=== PATIENT | female | born 1945 | race Caucasian/White ===

== ENCOUNTER 2019-06-27 22:43 | Inpatient (IN) | payer OTHER ==
--- OUTSIDE RECORDS SUMMARY | 2019-06-27 22:45 | XMS REPORT ---
:1945 Author Organization eClinicalWorks Care Team Providers Name Role Phone Rj Alfred Provider Role Unavailable Allergies No Known Allergies Problems Problem Type Condition Code Onset Dates Condition Status Problem Alzheimer disease G30.9 Active Problem Neck pain M54.2 Active Assessment Hyperlipidemia, mixed E78.2 Active Assessment Diabetes type 2, uncontrolled E11.65 Active Assessment Benign essential HTN I10 Active Problem Gingivitis K05.10 Active Problem Hyperlipidemia, mixed E78.2 Active Problem Stage 3 chronic kidney disease N18.3 Active Problem Diabetes type 2, uncontrolled E11.65 Active Problem Osteopenia M85.80 Active Problem Carotid artery occlusion I65.29 Active Problem Benign essential HTN I10 Active Medications No Known Medications Results No Known Results Summary Purpose eClinicalWorks Submission
--- OUTSIDE RECORDS SUMMARY | 2019-06-27 22:45 | XMS REPORT ---
:1945 Author Organization eClinicalWorks Care Team Providers Name Role Phone Alfred De La Rosa Provider Role Unavailable Allergies, Adverse Reactions, Alerts Substance Reaction Event Type penicillin Info Not Available Drug Allergy Problems Problem Type Condition Code Onset Dates Condition Status Problem Osteopenia M85.80 Active Problem Benign essential HTN I10 Active Problem Diabetes type 2, uncontrolled E11.65 Active Problem Proteinuria, unspecified R80.9 Active Assessment Alzheimer disease G30.9 Active Problem Decreased appetite R63.0 Active Assessment Osteopenia M85.80 Active Assessment Hypokalemia E87.6 Active Problem Type 2 diabetes mellitus with other E11.29 Active diabetic kidney complication Problem Hyperlipidemia, mixed E78.2 Active Problem Carotid artery occlusion I65.29 Active Problem Stage 3 chronic kidney disease N18.3 Active Problem Gingivitis K05.10 Active Assessment Benign essential HTN I10 Active Assessment Hyperlipidemia, mixed E78.2 Active Assessment Carotid artery occlusion I65.29 Active Assessment Stage 3 chronic kidney disease N18.3 Active Assessment Diabetes type 2, uncontrolled E11.65 Active Assessment Decreased appetite R63.0 Active Assessment Proteinuria, unspecified R80.9 Active Problem Neck pain M54.2 Active Assessment Type 2 diabetes mellitus with other E11.29 Active diabetic kidney complication Assessment Medicare annual wellness visit, Z00.00 Active subsequent Problem Alzheimer disease G30.9 Active Medications Medication Code Code Instructions Start End Status Dosage System Date Date Metoprolol Tartrate ND 80371061476 50 MG Orally Active 1 tablet Twice a day with food Lisinopril ND 10145920443 2.5 MG Orally Active 1 tablet Once a day Namzaric ND 51551693239 7-10 MG Orally Inactive 1 capsule Once a day in the evening Ziprasidone HCl ND 81398983464 20 MG Oral Active TAKE ONE (1) CAPSULE(S) BY MOUTH ONCE A DAY NEEDED. Glimepiride ND 60873299194 2 MG Orally Inactive 1 tablet Once a day with breakfast or the first main meal of the day Alendronate Sodium ND 65957994895 35 MG Orally Active 1 tablet once per week Lisinopril [facility] 12984249181 2.5 MG Active TAKE ONE (1) TABLET(S) BY MOUTH ONCE A DAY. Donepezil HCl [facility] 32106700738 10 MG Oral Active TAKE ONE (1) TABLET(S) BY MOUTH ONCE A DAY. Memantine HCl [facility] 26874014570 10 MG Oral Active TAKE ONE (1) TABLET(S) BY MOUTH TWICE A DAY. Glimepiride [facility] 77367989156 2 MG Active TAKE ONE (1) TABLET(S) BY MOUTH ONCE A DAY WITH BREAKFAST OR THE FIRST MAIN MEAL OF THE DAY. Hydrochlorothiazide [facility] 29771096312 12.5 MG Orally Active 1 tablet Once a day in the morning Crestor [facility] 37301486455 20 MG Orally Active 1 tablet Once a day Alendronate Sodium [facility] 65225953734 35 MG Orally Active 1 tablet once per week Results No Known Results Summary Purpose eClinicalWorks Submission
--- OUTSIDE RECORDS SUMMARY | 2019-06-27 22:45 | XMS REPORT ---
:1945 [facility] Address [address] [place] [address] Dr. Guallpa [address] [place] [id number] Care Team Providers Name Role Phone SYSTEM, PROVIDER NOT IN Unavailable Unavailable HAILEY SIMON Unavailable Unavailable Problems This patient has no known problems. Allergies, Adverse Reactions, Alerts This patient has no known allergies or adverse reactions. Medications This patient has no known medications. Results Test Description Test Time Test Comments Text Results Atomic Results Result Comments MM, STEREOTACTIC 2018-05-13 Reason for Addendum BeginsMRN#: BIOPSY, BREAST, 13:36:00 Exam:->microcalcifications [id number]: RIGHT 05/13/2018 Francis Rebollar M.D. Pathology results are now available and demonstrate hyalinized fibroadenoma.This is concordant with the imaging findings. Addendum EndsMRN#: [id number] - MM, STEREOTACTIC BIOPSY, BREAST, RIGHTSTEREOTACTIC GUIDED BIOPSY RIGHT BREAST WITH MARKING DEVICE INSERTED AND POST DIGITAL MAMMOGRAPHIC IMAGIN05/09/2018PATIENT CONSENT: The procedure, risks, benefits and alternatives were discussed with the patient. Informed consent was obtained. A stereotactic guided biopsy was performed for the area of grouped calcifications located in the right breast central, lateral to the nipple middle depth. The skin was prepped in the usual manner. Local anesthetic was administered to the access site. A skin stefan was made in the breast. The abnormality was approached from the lateral aspect using a prone table. A 9 gauge biopsy needle was placed adjacent to the abnormality under computer guidance and confirmatory stereotactic mammography images were obtained to document needle placement. Once the needle was documented to be in the correct location, multiple specimens were obtained using Voxound device. A clip was inserted into the biopsy cavity. A pressure dressing was applied to the access site. Post procedure digital mammographic imaging demonstrates the clip at the targeted area. The specimens were sent to the laboratory for pathological analysis. IMPRESSION: STEREOTACTIC GUIDED BIOPSYStereotactic guided biopsy of the area of grouped calcifications in the right breast central, lateral to the nipple middle depth was successful with no apparent post procedure complications. Francis Rebollar M.D. pth/:05/09/2018 14:05:00 Speedboat Operator: Teena Page RT(R)(M), [facility] [id number] UE EXAM 2018-05-10 Surgical Pathology 11:48:00 Report Case: [id number] Authorizing Provider: Francis Rebollar MD Collected: 05/09/2018 1533 Ordering Location: [facility] Received: 05/09/2018 8758 Pathologist: Rock Guerrero MD Specimen: Breast, Right, RIGHT CENTER LATERAL BREAST BREAST, RIGHT, CENTER LATERAL, STEREOTACTIC NEEDLE CORE BIOPSY: - HYALINIZED FIBROADENOMA ASSOCIATED WITH CALCIFICATIONS - COLUMNAR CELL CHANGES - BENIGN BREAST TISSUE ASSOCIATED WITH CALCIFICATION Signing Pathologist Direct Phone Line: [phone] ally signed by Rock Guerrero MD on 05/10/2018 at 11:48 [id number] X 1Questionable sclerosing lesion Right central lateral breast calcifications The specimen is received in a formalin-filled container labeled with the patient's information and labeled "right central lateral breast calcifications" and consists of multiple yellow-white breast cores ranging in length from 0.5 to 5 cm.Ink code: Black.The specimen is entirely submitted in A1 through A3. CG/ew Performed. [facility], Department of Pathology, [address] [place] [address], [place] [address], MM, MAMMO, 2018-05-09 Reason for exam:->Right breast MRN#: SPECIMEN, 14:05:00 calcifications [id number] - RADIOGRAPH, RIGHT MM, MAMMO, SPECIMEN, RADIOGRAPH, RIGHTSPECIMEN RIGHT BREAST: 05/09/2018Multiple stereotactic guided biopsy specimens were imaged for the area of calcifications located in the right breast central, lateral to the nipple middle depth. IMPRESSION: SPECIMENThe imaged specimens includes the calcifications. Francis Rebollar M.D. pth/:05/09/2018 14:05:51 Speedboat Operator: Teena VALDEZ (R)(Nany), [facility] [id number] , DIGITAL, 2018-05-09 Right breast Calcifications MRN#: UNILATERAL, 14:03:00 [id number] - CONFER JAYME, MM, DIGITAL, MAMMO, RIGHT UNILATERAL, CONFER INCLUDING CAD JAYME, MAMMO, RIGHT INCLUDING CADUNILATERAL RIGHT DIGITAL PROBLEM SOLVING MAMMOGRAM POST-PROCEDURE IMAGING FOR MARKER PLACEMENT: 05/09/2018 There are scattered fibroglandular elements in the right breast that could obscure a lesion on mammography. The post procedure mammogram was performed on a separate mammography unit.A clip is placed at the biopsy site. IMPRESSION: POST PROCEDURE MAMMOGRAM FOR MARKER PLACEMENTAwait pathology results. Francis Rebollar M.D. pth/:05/09/2018 14:03:34 Speedboat Operator: Teena FUNEZ)(M), [facility] Mammogram BI-RADS: Post-procedure mammogram for marker placement [id number] UE EXAM 2017-03-05 Surgical Pathology 10:40:00 Report Case: [id number] Authorizing Provider: Hailey Simon MD Collected: 02/24/2017 0832 Ordering Location: [facility] Received: 02/24/2017 0928 PERIOPERATIVE SERVICES Pathologist: Humberto Simons MD Specimen: Plaque, LEFT CAROTID ARTERY PLAQUE ARTERY, LEFT CAROTID, ATHERECTOMY:CALCIFIC ATHEROSCLEROTIC PLAQUE Signing Pathologist Direct Phone Line: [phone] ally signed by Humberto Simons MD on 03/05/2017 at 10:40 [id number]; [id number] stenosisLeft carotid artery plaque Specimen is received in a formalin-filled container labeled with the patient's information and labeled "left carotid plaque" and consists of a tubular shaped calcified segment of tissue measuring 2 cm in length and 0.5 cm in diameter. Cement Sprayer Helper sections are submitted in A1 for decalcification. CG/ewPerformed POCT-GLUCOSE METER 2017-02-25 11:16:00 Test Item Value Reference Range Comments POC-GLUCOSE METER (BEAKER) (test 114 mg/dL 70-110 TESTED AT [address] byre=6751) [place] [id number] POCT-GLUCOSE [id number] 06:48:00 Test Item Value Reference Range Comments POC-GLUCOSE METER (BEAKER) 154 mg/dL 70-110 TESTED AT [address] (test avcb=8113) [place] [address] POCT-GLUCOSE [id number] 23:34:00 Test Item Value Reference Range Comments POC-GLUCOSE METER (BEAKER) 166 mg/dL 70-110 TESTED AT [address] (test tpij=7673) [place] [address] POCT-GLUCOSE [id number] 23:32:00 Test Item Value Reference Range Comments POC-GLUCOSE METER (BEAKER) 251 mg/dL 70-110 TESTED AT [address] (test uoft=6258) [place] [address] POCT-GLUCOSE [id number] 20:27:00 Test Item Value Reference Range Comments POC-GLUCOSE METER (BEAKER) 260 mg/dL 70-110 TESTED AT [address] (test kitx=0853) [place] [address] POCT-GLUCOSE [id number] 06:16:00 Test Item Value Reference Range Comments POC-GLUCOSE METER (BEAKER) 162 mg/dL 70-110 TESTED AT [address] (test upey=4871) [place] [address] HEMOGLOBIN [id number] 12:09:00 Test Item Value Reference Range Comments HEMOGLOBIN A1C (BEAKER) (test irwc=506) 7.8 % 4.3-6.1 BASIC METABOLIC [id number] 10:38:00 Test Item Value Reference Range Comments SODIUM (BEAKER) (test 140 meq/L 136-145 ilpj=685) POTASSIUM (BEAKER) (test 4.0 meq/L 3.5-5.1 kyxg=037) CHLORIDE (BEAKER) (test 102 meq/L 98-107 vfwx=255) CO2 (BEAKER) (test 27 meq/L 22-29 tnby=462) BLOOD UREA NITROGEN 15 mg/dL 7-21 (BEAKER) (test qpzn=874) CREATININE (BEAKER) (test 1.01 mg/dL 0.57-1.25 xtli=207) GLUCOSE RANDOM (BEAKER) 287 mg/dL 70-105 (test gnxf=325) CALCIUM (BEAKER) (test 9.4 mg/dL 8.4-10.2 yzkl=993) EGFR (BEAKER) (test 54 mL/min/1.73 sq m ESTIMATED GFR IS NOT lxrh=1294) ACCURATE CREATININE CLEARANCE IN PREDICTING GLOMERULAR FILTRATION RATE. ESTIMATED GFR IS NOT APPLICABLE FOR DIALYSIS PATIENTS. PROTHROMBIN TIME/[id number] 10:25:00 Test Item Value Reference Range Comments PROTIME (BEAKER) (test ixwo=972) 12.9 seconds 11.7-14.7 INR (BEAKER) (test rbqc=302) 1.0 <=5.9 RECOMMENDED COUMADIN/WARFARIN INR THERAPY RANGESSTANDARD DOSE: 2.0 - 3.0 Includes: PROPHYLAXIS forvenous thrombosis, systemic embolization; TREATMENT for venous thrombosis and/or pulmonary embolus.HIGH RISK: Target INR is 2.5-3.5 for patients with mechanical heart valves.CBC W/PLT COUNT & AUTO [id number] 10:09:00 Test Item Value Reference Range Comments WHITE BLOOD CELL COUNT (BEAKER) (test upbg=203) 5.3 K/ L 3.5-10.5 RED BLOOD CELL COUNT (BEAKER) (test rrci=211) 4.48 M/ L 3.93-5.22 HEMOGLOBIN (BEAKER) (test wzac=434) 13.1 GM/DL 11.2-15.7 HEMATOCRIT (BEAKER) (test botb=596) 40.1 % 34.1-44.9 MEAN CORPUSCULAR VOLUME (BEAKER) (test cvfx=466) 89.5 fL 79.4-94.8 MEAN CORPUSCULAR HEMOGLOBIN (BEAKER) (test 29.2 pg 25.6-32.2 gwcf=236) MEAN CORPUSCULAR HEMOGLOBIN CONC (BEAKER) (test 32.7 GM/DL 32.2-35.5 iawp=322) RED CELL DISTRIBUTION WIDTH (BEAKER) (test 13.7 % 11.7-14.4 qvxn=773) PLATELET COUNT (BEAKER) (test qfat=504) 267 K/CU MM 150-450 MEAN PLATELET VOLUME (BEAKER) (test obth=440) 10.7 fL 9.4-12.3 NUCLEATED RED BLOOD CELLS (BEAKER) (test 0 /100 WBC 0-0 ogci=928) NEUTROPHILS RELATIVE PERCENT (BEAKER) (test 58 % okbw=815) LYMPHOCYTES RELATIVE PERCENT (BEAKER) (test 30 % vwgc=035) MONOCYTES RELATIVE PERCENT (BEAKER) (test 7 % ohrs=100) EOSINOPHILS RELATIVE PERCENT (BEAKER) (test 5 % qyqw=053) BASOPHILS RELATIVE PERCENT (BEAKER) (test 1 % vfyy=146) NEUTROPHILS ABSOLUTE COUNT (BEAKER) (test 3.05 K/ L 1.56-6.13 ilvz=469) LYMPHOCYTES ABSOLUTE COUNT (BEAKER) (test 1.58 K/ L 1.18-3.74 uhkt=968) MONOCYTES ABSOLUTE COUNT (BEAKER) (test 0.35 K/ L 0.24-0.36 lrrw=399) EOSINOPHILS ABSOLUTE COUNT (BEAKER) (test 0.26 K/ L 0.04-0.36 zecl=865) BASOPHILS ABSOLUTE COUNT (BEAKER) (test 0.03 K/ L 0.01-0.08 jfpm=667) IMMATURE GRANULOCYTES-RELATIVE PERCENT (BEAKER) 0 % 0-1 (test eewz=5154)
--- OUTSIDE RECORDS SUMMARY | 2019-06-27 22:45 | XMS REPORT ---
:1945 Author Organization eClinicalWorks Care Team Providers Name Role Phone Hong De La Rosah Provider Role Unavailable Allergies, Adverse Reactions, Alerts Substance Reaction Event Type penicillin Info Not Available Drug Allergy Problems Problem Type Condition Code Onset Dates Condition Status Problem Alzheimer disease G30.9 Active Problem Neck pain M54.2 Active Problem Gingivitis K05.10 Active Problem Hyperlipidemia, mixed E78.2 Active Problem Stage 3 chronic kidney disease N18.3 Active Problem Diabetes type 2, uncontrolled E11.65 Active Problem Osteopenia M85.80 Active Problem Carotid artery occlusion I65.29 Active Problem Benign essential HTN I10 Active Assessment Stage 3 chronic kidney disease N18.3 Active Assessment Hypokalemia E87.6 Active Assessment Carotid artery occlusion I65.29 Active Assessment Benign essential HTN I10 Active Assessment Osteopenia M85.80 Active Assessment Hyperlipidemia, mixed E78.2 Active Assessment Alzheimer disease G30.9 Active Assessment Diabetes type 2, uncontrolled E11.65 Active Medications Medication Code Code Instructions Start End Status Dosage System Date Crestor [facility] 62832332658 20 MG Orally Active 1 tablet Once a day Donepezil HCl [facility] 35778053559 10 MG Oral Active TAKE ONE (1) TABLET(S) BY MOUTH ONCE A DAY. Lisinopril [facility] 08680495680 2.5 MG Orally Active 1 tablet Once a day Alendronate Sodium [facility] 57622989583 35 MG Orally Active 1 tablet once per week Namzaric [facility] 80008980328 7-10 MG Orally Inactive 1 capsule Once a day in the evening Memantine HCl ND 32327440485 10 MG Oral Active TAKE ONE (1) TABLET(S) BY MOUTH TWICE A DAY. Metoprolol Tartrate [facility] 19068033186 50 MG Orally Active 1 tablet Twice a day with food Lisinopril [facility] 16979304908 2.5 MG Active TAKE ONE (1) TABLET(S) BY MOUTH ONCE A DAY. Hydrochlorothiazide [facility] 92047982999 25 MG Orally Active 1 tablet Once a day in the morning Glimepiride [facility] 34710967027 2 MG Orally Active 1 tablet Once a day with breakfast or the first main meal of the day Glimepiride [facility] 18240985893 2 MG Orally Inactive 1 tablet Once a day with breakfast or the first main meal of the day Ziprasidone HCl [facility] 02397417281 20 MG Oral Active TAKE ONE (1) CAPSULE(S) BY MOUTH ONCE A DAY NEEDED. Hydrochlorothiazide [facility] 17843123498 12.5 MG Orally Active 1 tablet Once a day in the morning Results No Known Results Summary Purpose eClinicalWorks Submission
[2019-06-27] MEDS ORDERED: NA CHLORIDE 0.9% 1,000 ML ONE (23:24)
[2019-06-27 23:32] LABS: Absolute Lymphocytes (CBC) 2.1 K/uL (0.7-4.9); Basophils % 0.9 % (0-1.3); Hematocrit 40.8 % (36.0-45.0); Lymphocytes % 18.6 % (15.3-44.8); MPV 9.4 fL (7.6-11.3); Protime INR 0.97; RBC Red Blood Cell Count 4.86 M/uL (3.86-4.86)
--- NOTE | 2019-06-27 23:54 | RAD REPORT ---
EXAM DESCRIPTION: RAD - Chest Single View - 06/27/2019 11:42 pm CLINICAL HISTORY: hypotension Chest pain. COMPARISON: Chest Single View dated 01/29/2017; Chest Single View dated 01/27/2017; Chest Single View dated 01/26/2017 FINDINGS: Portable technique limits examination quality. The lungs are mildly emphysematous but clear. The heart is normal in size. No displaced fractures. IMPRESSION: COPD.
[2019-06-28 00:10] LABS: Urine Appearance TURBID; Urine Blood NEGATIVE (NEG); Urine Color DK YELLOW; Urine Glucose NEGATIVE (NEG); Urine Protein 2+ (NEG)
[2019-06-28 00:11] LABS: Urine Microscopic Reflex ORDER UMIC
[2019-06-28 00:33] LABS: Urine Blood 3+ (NEG); Urine Glucose NEGATIVE (NEG); Urine Protein 3+ (NEG); Urine Specific Gravity >1.030 (1.005-1.030)
[2019-06-28 00:34] LABS: Urine Bilirubin NEGATIVE (NEG)
[2019-06-28 00:38] LABS: Urine Amorphous Sediment 4+ /HPF (NONE SEEN); Urine Bacteria 20-50 /HPF (<20); Urine Culture Reflex Order REFLEXED; Urine RBC <5 /HPF (NONE SEEN); Urine Urothelial Cells <5 /HPF (NONE SEEN)
[2019-06-28 00:39] LABS: ALT/SGPT 12 U/L (12-78); AST/SGOT 18 U/L (15-37); Albumin 3.6 g/dL (3.4-5.0); Alkaline Phosphatase 63 U/L (45-117); BUN Blood Urea Nitrogen 49 mg/dL (7-18); Bicarbonate 27 mmol/L (21-32); Bilirubin Direct 0.2 mg/dL (0-0.2); Bilirubin Total 0.6 mg/dL (0.2-1.0); Glucose Level 108 mg/dL (74-106); Magnesium 2.6 mg/dL (1.8-2.4); NT PRO-BNP 538 pg/mL (<450); Potassium 3.9 mmol/L (3.5-5.1); Sodium Level 134 mmol/L (136-145); Troponin (Emerg Dept Use Only) < 0.02 ng/mL (0.0-0.045)
[2019-06-28] MEDS ORDERED: ACETAMINOPHEN 500 MG TAB PO PRN (01:18)
[2019-06-28] MEDS ORDERED: ONDANSETRON 4 MG/2 ML VIAL IV PRN (01:18)
--- NOTE | 2019-06-28 01:33 | EDPHYS ---
Physician Documentation [facility] Name: Nichole Brown Age: 73 yrs Sex: Female : 1945 Arrival Date: 06/27/2019 Time: 22:[address] Private MD: ED Physician Ascencion Allison HPI: 06/27 23:38 This 73 yrs old Female presents to ER via Wheelchair with complaints of Low pkl Blood Pressure. 23:38 Patient weak and not eating for 2 to 3 days. Daughter said she has recurrent falls past pkl few days. Historical: - Allergies: 23:09 PENICILLINS; rv - Home Meds: 23:09 aspirin 81 mg Oral TbEC 1 tab once daily [Active]; Boniva Oral [Active]; cranberry rv 4200mg Oral [Active]; donepezil 10 mg Oral tab 1 tab once daily [Active]; glimepiride 2 mg Oral tab 1 tab once daily [Active]; hydrochlorothiazide 25 mg Oral tab 1 tab once daily [Active]; loratadine 10 mg Oral tab 1 tab once daily [Active]; Namzaric 10mg Oral CSpX 1 cap once daily [Active]; rosuvastatin 20 mg Oral tab 1 tab once daily [Active]; - PMHx: 23:09 Alzheimers; Diabetes - NIDDM; Hypertension; left mastectomy; skin cancer; rv - PSHx: 23:09 left mastectomy; left carotid; angiogram; rv - Immunization history:: Adult Immunizations up to date. - Social history:: Smoking status: Patient/guardian denies using tobacco, the patient reports quitting approximately 15 years ago. - Ebola Screening: : No symptoms or risks identified at this time. ROS: 23:38 Eyes: Negative for injury, pain, redness, and discharge, ENT: Negative for injury, pkl pain, and discharge, Neck: Negative for injury, pain, and swelling, Cardiovascular: Negative for chest pain, palpitations, and edema, Respiratory: Negative for shortness of breath, cough, wheezing, and pleuritic chest pain, Abdomen/GI: Negative for abdominal pain, nausea, vomiting, diarrhea, and constipation, Back: Negative for injury and pain, : Negative for injury, bleeding, discharge, and swelling, MS/Extremity: Negative for injury and deformity, Skin: Negative for injury, rash, and discoloration. 23:38 Neuro: Positive for weakness. Exam: 23:38 Head/Face: Normocephalic, atraumatic. Eyes: Pupils equal round and reactive to light, pkl extra-ocular motions intact. Lids and lashes normal. Conjunctiva and sclera are non-icteric and not injected. Cornea within normal limits. Periorbital areas with no swelling, redness, or edema. ENT: Nares patent. No nasal discharge, no septal abnormalities noted. Tympanic membranes are normal and external auditory canals are clear. Oropharynx with no redness, swelling, or masses, exudates, or evidence of obstruction, uvula midline. Mucous membranes moist. Neck: Trachea midline, no thyromegaly or masses palpated, and no cervical lymphadenopathy. Supple, full range of motion without nuchal rigidity, or vertebral point tenderness. No Meningismus. Chest/axilla: Normal chest wall appearance and motion. Nontender with no deformity. No lesions are appreciated. Cardiovascular: Regular rate and rhythm with a normal S1 and S2. No gallops, murmurs, or rubs. Normal PMI, no JVD. No pulse deficits. Respiratory: Lungs have equal breath sounds bilaterally, clear to auscultation and percussion. No rales, rhonchi or wheezes noted. No increased work of breathing, no retractions or nasal flaring. 23:38 Abdomen/GI: Bowel sounds: normal, Palpation: abdomen is soft and non-tender, in all quadrants, Rectal exam: Stool: guaiac negative, the exam is chaperoned by a family member. 23:38 Back: Exam negative for acute changes. 23:38 : Exam negative for acute changes. 23:38 Musculoskeletal/extremity: Exam is negative for acute changes. 23:38 Skin: Exam negative for rash. 23:38 Neuro: Orientation: is normal, Mentation: is normal, Cranial nerves: grossly normal, Motor: is normal. Vital Signs: 23:03 BP 72 / 42; Pulse 73; Resp 19; Temp 97.3(TE); Pulse Ox 98% ; Weight 40.82 kg; rv 23:15 BP 94 / 45; Pulse 67; Resp 18; Pulse Ox 98% on R/A; lp1 06/28 00:00 BP 94 / 81; Pulse 70; Resp 15; Pulse Ox 98% on R/A; lp1 00:45 BP 97 / 55; Pulse 77; Resp 17; Pulse Ox 97% on R/A; lp1 01:44 BP 107 / 50; Pulse 61; Resp 14; Pulse Ox 100% on R/A; lp1 02:30 BP 94 / 49; Pulse 63; Resp 13; Pulse Ox 100% on R/A; Pain 0/10; lp1 03:00 BP 98 / 50; Pulse 65; Resp 17; Pulse Ox 99% on R/A; lp1 MDM: 06/27 23:06 Patient medically screened. pkl 06/28 01:05 Data reviewed: vital signs, nurses notes, lab test result(s), EKG, radiologic studies, pkl CT scan, plain films. ED course: Discussed patient with Dr. Connolly. Will see patient in ER. 06/27 23:23 Order name: Basic Metabolic Panel; Complete Time: 00:43 pkl 06/27 23:23 Order name: CBC with Diff; Complete Time: 23:36 pkl 06/27 23:23 Order name: LFT's; Complete Time: 00:43 pkl 06/27 23:23 Order name: Magnesium; Complete Time: 00:43 pkl 06/27 23:23 Order name: PT-INR; Complete Time: 23:36 pkl 06/27 23:23 Order name: Troponin (emerg Dept Use Only); Complete Time: 00:43 pkl 06/27 23:23 Order name: Blood Culture Adult (2) pkl 06/27 23:23 Order name: UA; Complete Time: 00:43 pkl 06/27 23:37 Order name: Lactate; Complete Time: 00:33 pkl 06/27 23:53 Order name: Urine Dipstick--Ancillary (enter results); Complete Time: 00:36 jd2 06/28 00:33 Order name: Urine Microscopic Only EDMS 06/28 00:33 Order name: NT PRO-BNP EDMS 06/28 00:51 Order name: Urine Culture EDMS 06/27 23:23 Order name: XRAY Chest (1 view); Complete Time: 00:00 pkl 06/27 23:23 Order name: EKG; Complete Time: 23:24 pkl 06/27 23:23 Order name: Cardiac monitoring; Complete Time: 23:46 pkl 06/27 23:23 Order name: EKG - Nurse/Tech; Complete Time: 23:46 pkl 06/27 23:23 Order name: IV Saline Lock; Complete Time: 23:48 pkl 06/27 23:23 Order name: Labs collected and sent; Complete Time: 23:48 pkl 06/27 23:37 Order name: CT Head Brain wo Cont pkl 06/28 01:22 Order name: Heart Healthy EDME 06/28 01:22 Order name: CBC with Automated Diff EDMS 06/28 01:22 Order name: CBC with Automated Diff MS 06/28 01:22 Order name: Comprehensive Metabolic Panel [facility] 06/28 01:22 Order name: Comprehensive Metabolic Panel [facility] 06/28 01:22 Order name: Magnesium EDME 06/28 01:22 Order name: Magnesium [facility] 06/28 01:22 Order name: Phosphorus [facility] 06/28 01:23 Order name: Phosphorus MS 06/27 23:23 Order name: O2 Per Protocol; Complete Time: 23:46 pkl 06/27 23:23 Order name: O2 Sat Monitoring; Complete Time: 23:46 pkl Administered Medications: No medications were administered Point of Care Testing: Guaiac: 06/27 23:15 Stool Guaiac: Negative; Stool Hemoccult Control: Pass; lp1 Disposition: 06/28/19 01:31 Hospitalization ordered by Lawrence Connolly for Inpatient Admission. Preliminary diagnosis is Dehydration. Generalized weakness. Recurrent falls. Urinary tract infection. Hypotension. - Bed requested for Telemetry/MedSurg (Inpatient). - Status is Inpatient Admission. lp1 - Condition is Stable. - Problem is new. - Symptoms are unchanged. UTI on Admission? Yes Signatures: Dispatcher [employer] [facility] Nancy Camilo RN RN mw Lam, Pin, MD MD pkElizabeth Medina RN RN lp1 Donis Haddad RN RN rv Corrections: (The following items were deleted from the chart) 06/28 00:27 06/27 23:24 PROBNP+C.LAB.BRZ ordered. [facility] 06/28 01:44 01:31 Hospitalization Ordered by Lawrence Connolly MD for Inpatient Admission. Preliminary diagnosis is Dehydration. Generalized weakness. Recurrent falls. Urinary tract infection. Bed requested for Telemetry/MedSurg (Inpatient). Status is Inpatient Admission. Condition is Stable. Problem is new. Symptoms are unchanged. UTI on Admission? Yes. pkl 01:52 01:44 06/28/2019 01:31 Hospitalization Ordered by Lawrence Connolly MD for Inpatient pkl Admission. Preliminary diagnosis is Dehydration. Generalized weakness. Recurrent falls. Urinary tract infection. Bed requested for Telemetry/MedSurg (Inpatient). Status is Inpatient Admission. Condition is Stable. Problem is new. Symptoms are unchanged. UTI on Admission? Yes. mw 03:24 01:52 06/28/2019 01:31 Hospitalization Ordered by Lawrence Connolly MD for Inpatient lp1 Admission. Preliminary diagnosis is Dehydration. Generalized weakness. Recurrent falls. Urinary tract infection. Hypotension. Bed requested for Telemetry/MedSurg (Inpatient). Status is Inpatient Admission. Condition is Stable. Problem is new. Symptoms are unchanged. UTI on Admission? Yes. pkl
--- NOTE | 2019-06-28 01:33 | ER ---
Nurse's Notes [facility] Name: Nichole Brown Age: 73 yrs Sex: Female : 1945 Arrival Date: 06/27/2019 Time: 22:[address] Private MD: Diagnosis: Dehydration. Generalized weakness. Recurrent falls. Urinary tract infection. Hypotension Presentation: 06/27 22:56 Presenting complaint: Child states: she has alzheimer's, she has not been eating well. rv she fells a lot of time. legs are very unsteady. blood pressure is at 90s/40s. seen blood in the diaper while changing. Transition of care: patient was not received from another setting of care. Onset of symptoms was June 27, 2019 at 22:30. Risk Assessment:. Care prior to arrival: None. 22:56 Method Of Arrival: Wheelchair rv 22:56 Acuity: GENESIS 2 rv 06/28 00:46 Risk Assessment: Do you want to hurt yourself or someone else? Patient reports no lp1 desire to harm self or others. Initial Sepsis Screen: Does the patient meet any 2 criteria? No. Patient's initial sepsis screen is negative. Does the patient have a suspected source of infection? No. Patient's initial sepsis screen is negative. Triage Assessment: 06/27 23:10 General: Appears in no apparent distress. Behavior is calm, cooperative. Pain: Denies rv pain. Neuro: Level of Consciousness is awake, alert, Oriented to person, place. Cardiovascular: Patient's skin is warm and dry. Respiratory: Airway is patent. Derm: Skin is intact. Historical: - Allergies: 23:09 PENICILLINS; rv - Home Meds: 23:09 aspirin 81 mg Oral TbEC 1 tab once daily [Active]; Boniva Oral [Active]; cranberry rv 4200mg Oral [Active]; donepezil 10 mg Oral tab 1 tab once daily [Active]; glimepiride 2 mg Oral tab 1 tab once daily [Active]; hydrochlorothiazide 25 mg Oral tab 1 tab once daily [Active]; loratadine 10 mg Oral tab 1 tab once daily [Active]; Namzaric 10mg Oral CSpX 1 cap once daily [Active]; rosuvastatin 20 mg Oral tab 1 tab once daily [Active]; - PMHx: 23:09 Alzheimers; Diabetes - NIDDM; Hypertension; left mastectomy; skin cancer; rv - PSHx: 23:09 left mastectomy; left carotid; angiogram; rv - Immunization history:: Adult Immunizations up to date. - Social history:: Smoking status: Patient/guardian denies using tobacco, the patient reports quitting approximately 15 years ago. - Ebola Screening: : No symptoms or risks identified at this time. Screenin/25 00:45 Abuse screen: Denies threats or abuse. Denies injuries from another. Nutritional lp1 screening: No deficits noted. Tuberculosis screening: No symptoms or risk factors identified. Fall Risk Total Ray Fall Scale indicates High Risk Score (45 or more points). Fall prevention measures have been instituted. Side Rails Up X 2 As available patient and family educated on Fall Prevention Program and Strategies. Assessment: 06/27 23:15 General: Appears in no apparent distress. comfortable, Behavior is calm, cooperative, lp1 appropriate for age. Pain: Denies pain. Neuro: Level of Consciousness is awake, alert, obeys commands, Oriented to person, place, Patient's daughter reports patient off balance, "Her legs are like spaghetti" . Cardiovascular: Patient's skin is warm and dry. Respiratory: Respiratory effort is even, unlabored, Breath sounds are clear bilaterally. GI: Abdomen is non-distended. : No signs and/or symptoms were reported regarding the genitourinary system. EENT: No signs and/or symptoms were reported regarding the EENT system. Derm: Skin is fragile, is thin, Skin is dry, Skin is normal. Musculoskeletal: No deficits noted. 23:20 Derm: redness noted to perineum area, between buttocks; Daughter at bedside notified. lp1 23:40 Reassessment: Assisted patient to bsc. lp1 06/28 00:00 Reassessment: Assisted patient to bsc at this time, states feeling like she has to lp1 void, no urine noted in bsc. 00:35 Reassessment: Assisted patient to bsc. lp1 01:44 Reassessment: Patient returned from CT. Reassessment: Patient appears in no apparent lp1 distress at this time. Patient is alert, oriented x 3, equal unlabored respirations, skin warm/dry/pink. 02:15 Reassessment: Dr. Connolly at bedside to discuss care with patient and daughter. lp1 Vital Signs: 06/27 23:03 BP 72 / 42; Pulse 73; Resp 19; Temp 97.3(TE); Pulse Ox 98% ; Weight 40.82 kg; rv 23:15 BP 94 / 45; Pulse 67; Resp 18; Pulse Ox 98% on R/A; lp1 06/28 00:00 BP 94 / 81; Pulse 70; Resp 15; Pulse Ox 98% on R/A; lp1 00:45 BP 97 / 55; Pulse 77; Resp 17; Pulse Ox 97% on R/A; lp1 01:44 BP 107 / 50; Pulse 61; Resp 14; Pulse Ox 100% on R/A; lp1 02:30 BP 94 / 49; Pulse 63; Resp 13; Pulse Ox 100% on R/A; Pain 0/10; lp1 03:00 BP 98 / 50; Pulse 65; Resp 17; Pulse Ox 99% on R/A; lp1 ED Course: 06/27 22:45 Patient arrived in ED. ds1 22:59 Triage completed. rv 23:06 Ascencion Allison MD is Attending Physician. pkl 23:10 Arm band placed on Patient placed in the treatment room, on a stretcher, Patient rv notified of wait time. 23:10 Inserted saline lock: 22 gauge in right antecubital area, using aseptic technique. lp1 Blood collected. 23:15 Served as a public health worker during rectal exam. lp1 23:20 Straight cath inserted, using sterile technique, 16 Fr. Specimen obtained. lp1 23:39 Elizabeth Ugarte, LOLY is Primary Nurse. lp1 23:44 XRAY Chest (1 view) In Process Unspecified. EDMS 23:47 Patient has correct armband on for positive identification. Placed in gown. Bed in low lp1 position. product applications scientist on. Pulse ox on. NIBP on. 06/28 01:29 Lawrence Connolly MD is Hospitalizing Provider. pkl 01:44 Patient admitted, IV remains in place. lp1 Administered Medications: No medications were administered Point of Care Testing: Guaiac: 06/27 23:15 Stool Guaiac: Negative; Stool Hemoccult Control: Pass; lp1 Outcome: 06/28 01:31 Decision to Hospitalize by Provider. pkl 01:44 Condition: stable lp1 01:44 Instructed on the need for admit. 02:50 Admitted to Med/surg family with patient, via wheelchair, room 210, with chart, Report lp1 called to LOLY Hughes 03:24 Patient left the ED. lp1 Signatures: Dispatcher [employer] EDAscencion Trevizo MD MD pkl Sanford, Demi ds1 Elizabeth Ugarte RN RN lp1 Donis Haddad RN RN rv
--- NOTE | 2019-06-28 02:32 | P.HP ---
Certification for Inpatient Patient admitted to: Inpatient With expected LOS: >2 Midnights Patient will require the following post-hospital care: None Practitioner: I am a practitioner with admitting privileges, knowledge of patient current condition, hospital course, and medical plan of care. Services: Services provided to patient in accordance with Admission requirements found in Title 42 Section 412.3 of the Code of Federal Regulations Patient History Date of Service: 06/28/19 Reason for admission: Decreased p.o. intake and generalized weakness History of Present Illness: 73-year-old female with past medical history of hypertension, diabetes , dementia transferred from assisted living facility , and she was not taking much p.o.. And her blood pressure was running low 90s and was transferred over here for further management. Patient is a poor historian due to dementia hence most of the history is obtained from the daughter who is at the bedside. As per health the patient has been noted not drinking adequate fluid or eating much for the last 1 week. She was seen in the PCPs office and found to have low blood pressure. As she was not drinking adequately family got concerned and was brought to the ER. In the ER patient was assessed and found to have acute kidney injury and dehydration and UTI and is admitted for further management Allergies Penicillins Allergy (Intermediate, Verified 02/18/17 10:35) Itching/Hives/Rash Home Medications: Aspirin [Aspirin EC 81 MG] 81 mg PO DAILY 01/27/17 Cranberry Conc/C/Bacill Coag [Cranberry Tablet] 1 each PO DAILY 01/27/17 Donepezil [Aricept*] 10 mg PO DAILY 01/27/17 Glimepiride 2 mg PO DAILY 01/27/17 Loratadine 10 mg PO DAILY 01/27/17 Memantine HCl/Donepezil HCl [Namzaric 7 mg-10 mg Capsule] 10 mg PO DAILY Rosuvastatin Calcium 20 mg PO DAILY 01/27/17 hydroCHLOROthiazide [Hydrochlorothiazide] 25 mg PO DAILY 01/27/17 Cyanocobalamin (Vitamin B-12) [Vitamin B-12] 5,000 mcg SL DAILY #30 tab.subl Metoprolol Tartrate [Lopressor*] 50 mg PO BID #60 tab 01/31/17 Smz./Tmp. [Bactrim Ds 800 MG/160 MG] 1 each PO DAILY #14 tab 01/31/17 - Past Medical/Surgical History Diabetic: Yes Past Medical History: Reviewed- Non-Contributory -: Diabetes -: HTN -: Alzehiemer's -: Skin CA (face) Past Surgical History: Reviewed- Non-Contributory -: L. Mastectomy -: Skin CA removal, R. face - Family History Family History: Reviewed- Non-Contributory - Social History Smoking Status: Never smoker Alcohol use: Yes CD- Drugs: No Caffeine use: No Physical Examination - Vital Signs Temperature: 97.6 F Blood Pressure: 92/42 Pulse: 78 - Physical Exam General: Alert, In no apparent distress, Cooperative, Demented HEENT: Atraumatic, Normocephalic Neck: Supple, No Thyromegaly Respiratory: Clear to auscultation bilaterally, Normal air movement Cardiovascular: Normal pulses, Regular rate/rhythm Capillary refill: <2 Seconds Gastrointestinal: Soft and benign, W/out hepatosplenomegaly Musculoskeletal: No clubbing, No swelling Integumentary: No rashes Neurological: Normal speech, Normal strength at 5/5 x4 extr Lymphatics: No axilla or inguinal lymphadenopathy Urinary: Other (No bladder distention) External genitalia: Deferred Rectal: Deferred - Studies Laboratory Data (last 24 hrs) 06/27/19 23:54: Sodium 134 L, Potassium 3.9, BUN 49 H, Creatinine 3.49 H, Glucose 108 H, Magnesium 2.6 H, Total Bilirubin 0.6, AST 18, ALT 12, Alkaline Phosphatase 63 06/27/19 23:10: PT 11.5, INR 0.97 06/27/19 23:10: WBC 11.5 H, Hgb 13.7, Hct 40.8, Plt Count 426 H Assessment and Plan - Problems (Diagnosis) (1) Acute kidney injury Current Visit: Yes Status: Acute (2) Hyponatremia Current Visit: Yes Status: Acute (3) Dehydration Current Visit: Yes Status: Acute (4) Adult failure to thrive Current Visit: Yes Status: Chronic (5) Dementia Current Visit: Yes Status: Chronic (6) Diabetes mellitus Onset Date: 01/27/17 Current Visit: No Status: Chronic (7) UTI (urinary tract infection) Onset Date: 01/27/17 Current Visit: No Status: Acute - Plan UTI Hypotension Acute kidney injury Dehydration Hyponatremia Dementia History of hypertension Diabetes Plan Monitor under telemetry Aggressive hydration with albumin and normal saline Start on protein supplements monitor BMP daily Monitor renal parameters Nephrology consult if renal parameters not improved with hydration Start on antibiotics Cultures change antibiotic as per the sensitivity Continue home medications and titrate as needed Will hold antihypertensive for time being Insulin sliding scale GI/DVT prophylaxis Advanced directives full code. Discussed with the POA - Advance Directives Does patient have a Living Will: No Does patient have a Durable POA for Healthcare: Yes Time Spent Managing Pts Care (In Minutes): 46
[2019-06-28] MEDS ORDERED: ALBUMIN HUMAN 25% 100 ML IV ONE ×2 (02:35→04:49)
[2019-06-28] MEDS ORDERED: Levofloxacin500mg IV 500 MG/100 ML BAG IV SCH (03:00)
[2019-06-28] MEDS ORDERED: POTASSIUM 25 MEQ EFFERV TAB PO ONE (03:46)
[2019-06-28 04:08] VITALS: BMI 21.6
[2019-06-28] MEDS ORDERED: NA CHLORIDE 0.9% 1,000 ML ONE (04:47)
[2019-06-28] MEDS ORDERED: PANTOPRAZOLE 40MG TABLET PO ONE (04:48)
[2019-06-28] MEDS ORDERED: Levofloxacin500mg IV 500 MG/100 ML BAG IV ONE (04:50)
[2019-06-28] MEDS: NA CHLORIDE 0.9% 1,000 ML IV SCH ×3 (04:53→19:11)
[2019-06-28] MEDS ORDERED: GLUCAGON 1 MG/VIAL IM PRN (06:17)
[2019-06-28] MEDS ORDERED: D50W 25 GM/50 ML SYRINGE/VIAL IV PRN (06:17)
[2019-06-28] MEDS ORDERED: PANTOPRAZOLE 40MG TABLET PO SCH (06:30)
[2019-06-28] MEDS: INSULIN -REGULAR HUMAN 50 UNIT/0.5 ML ML SQ SCH ×4 (07:30→21:00)
[2019-06-28] MEDS ORDERED: ZIPRASIDONE 20 MG CAP PO PRN (10:15)
--- NOTE | 2019-06-28 10:21 | P.PN ---
Date of Service: 06/28/19 Patient seen and examined. She is awake and alert and communicating meaningfully. She denies any complain. She denies any nausea or vomiting or diarrhea. Acute renal failure-likely pre-renal UTI Hypotension-likely secondary to volume depletion. Plan: Continue IV hydration Monitoring renal function Continue IV Levaquin Hold antihypertensives. Follow cultures.
--- NOTE | 2019-06-28 11:45 | RAD REPORT ---
EXAM DESCRIPTION: Head Brain Wo Cont CLINICAL HISTORY: 73 years Female recurrent fall TECHNIQUE: Contiguous axial CT images obtained through the brain without IV contrast. This CT exam was performed according to our departmental dose-optimization program, which includes on e or more of the following dose reduction techniques: automated exposure control, adjustment of the m A and/or kV according to patient size, and/or use of iterative reconstruction technique. COMPARISON: No prior exams provided for comparison. FINDINGS: There is no acute skull fracture, intracranial hemorrhage, extraaxial collection, or acute transcortical infarction. Mild diffuse volume loss without mass effect or midline shift. The visualized paranasal sinuses, tympanomastoid cavities, and orbits are normal. IMPRESSION: No acute intracranial abnormality. Electronically signed by: Janice Powell MD 06/28/2019 1:46 AM CONTRACTS DIRECTOR Due to temporary technical issues with the PACS/Fluency reporting system, reports are being signed by the in house radiologist as a courtesy to ensure prompt reporting. The interpreting radiologist is f ully responsible for the content of the report.
[2019-06-28] MEDS: VITAMIN D 1000 UNIT TAB PO SCH (13:09)
[2019-06-28] MEDS: MEMANTINE HCL 10 MG TABLET PO SCH (20:26)
[2019-06-28] MEDS ORDERED: DONEPEZIL HCL 5 MG TAB PO SCH ×2 (21:00)
[2019-06-28 22:53] VITALS: O2SAT 93
[2019-06-29] MEDS: NA CHLORIDE 0.9% 1,000 ML IV SCH (04:50)
[2019-06-29] MEDS ORDERED: Levofloxacin 250mg IV 250 MG/50 ML BAG IV SCH (05:00)
[2019-06-29 07:04] LABS: Albumin 3.2 g/dL (3.4-5.0); Bilirubin Total 0.6 mg/dL (0.2-1.0); Magnesium 2.2 mg/dL (1.8-2.4); Potassium 3.3 mmol/L (3.5-5.1); Protein, Total 6.6 g/dL (6.4-8.2)
[2019-06-29 07:10] LABS: Absolute Lymphocytes (CBC) 1.3 K/uL (0.7-4.9); Basophils % 0.9 % (0-1.3); Hematocrit 31.9 % (36.0-45.0); Lymphocytes % 18.9 % (15.3-44.8); MPV 8.7 fL (7.6-11.3); RBC Red Blood Cell Count 3.88 M/uL (3.86-4.86)
[2019-06-29] MEDS ORDERED: PANTOPRAZOLE 40MG TABLET PO SCH (07:30)
[2019-06-29] MEDS: INSULIN -REGULAR HUMAN 50 UNIT/0.5 ML ML SQ SCH ×2 (07:30→11:30)
--- NOTE | 2019-06-29 08:11 | EKG ---
Test Date: 2019-06-28 Test Time: 00:02:27 Hack Saw Operator: DORIAN MEASUREMENT RESULTS: Intervals: Rate: 61 LA: 162 QRSD: 78 QT: 446 QTc: 448 [place]: P: 40 LA: 162 QRS: -16 T: 28 INTERPRETIVE STATEMENTS: Normal sinus rhythm ST & T wave abnormality, consider anterior ischemia Abnormal ECG Compared to ECG 01/26/2017 22:43:46 Possible ischemia now present ST (T wave) deviation still present Electronically Signed On 06-29-19 08:10:11 LINE COOK by Juan Leiva
[2019-06-29] MEDS ORDERED: POTASSIUM 25 MEQ EFFERV TAB PO ONE (09:00)
[2019-06-29] MEDS ORDERED: CETIRIZINE HCL 5 MG TABLET PO SCH (09:00)
[2019-06-29] MEDS ORDERED: HOME MED 1 EA UNK (Cetirizine Hcl [Cetirizine Hcl] 1 TAB) PO SCH (09:00)
[2019-06-29] MEDS ORDERED: FOS PO SCH (09:00)
[2019-06-29] MEDS ORDERED: LACTOBACILLUS/ACIDOPHILUS TAB PO SCH (09:00)
[2019-06-29] MEDS ORDERED: HOME MED 1 EA UNK (Rosuvastatin Calcium [Rosuvastatin Calcium] 20 MG) PO SCH (09:00)
[2019-06-29] MEDS ORDERED: LACTOBACILLUS ACIDOPHILUS PO SCH (09:00)
[2019-06-29] MEDS ORDERED: ASPIRIN EC 81 MG TAB PO SCH (09:00)
[2019-06-29] MEDS ORDERED: HOME MED 1 EA UNK (Cholecalciferol (Vitamin D3) [Vitamin D3] 1 TAB) PO SCH (09:00)
[2019-06-29] MEDS ORDERED: HOME MED 1 EA UNK (Donepezil Hcl [Donepezil Hcl] 1 TAB) PO SCH (09:00)
[2019-06-29] MEDS ORDERED: ROSUVASTATIN 10 MG TAB PO SCH (09:00)
[2019-06-29] MEDS: MEMANTINE HCL 10 MG TABLET PO SCH (09:24)
[2019-06-29] MEDS: VITAMIN D 1000 UNIT TAB PO SCH (09:24)
[2019-06-29] MEDS ORDERED: POTASSIUM CL SA 10 MEQ TAB PO ONE (09:33)
[2019-06-29] MEDS ORDERED: NA CHLORIDE 0.9% 1,000 ML IV ONE (10:40)
--- NOTE | 2019-06-29 10:46 | P.DS ---
Admission Date: 06/28/19 Discharge Date: 06/29/19 Disposition: DC HOME/HOME HEALTH CARE Discharge Condition: FAIR Reason for Admission: Decreased p.o. intake and generalized weakness - Problems (1) Acute kidney injury Current Visit: Yes Status: Acute (2) Dehydration Current Visit: Yes Status: Acute (3) Hyponatremia Current Visit: Yes Status: Acute (4) Adult failure to thrive Current Visit: Yes Status: Chronic (5) Dementia Current Visit: Yes Status: Chronic (6) Altered mental status Current Visit: No Status: Acute (7) Ataxia Onset Date: 01/27/17 Current Visit: No Status: Acute (8) Hypokalemia Onset Date: 01/27/17 Current Visit: No Status: Acute (9) NSTEMI (non-ST elevated myocardial infarction) Onset Date: 01/27/17 Current Visit: No Status: Acute (10) Toxic encephalopathy Current Visit: No Status: Acute (11) UTI (urinary tract infection) Onset Date: 01/27/17 Current Visit: No Status: Acute (12) Weakness Onset Date: 01/27/17 Current Visit: No Status: Acute (13) Diabetes mellitus Onset Date: 01/27/17 Current Visit: No Status: Chronic Brief History of Present Illness: patient with dementia admitted for weakness, low bp , ataxia Hospital Course: Patient on admission was noted with UTI , started on antibiotics . she was also hypotensive requiring multiple blouses of IVF. Blood cx shows no growth till date , Urine culture yielded no growth . Her symptoms and dizziness started to improved . Her appetite also started to improved. She remained off her BP meds. Her creatinine was elevated to 3.5 on admission but improved to 2.1 now . She will continue high fluid intake at home and follow with her PCP in 1 week prior to restarting her BP meds . Continue to avoid hctz diuretics . Vital Signs/Physical Exam: Temp Pulse Resp BP Pulse Ox 97.5 F 67 16 95/46 L 95 06/29/19 08:00 06/29/19 08:00 06/29/19 08:00 06/29/19 08:00 06/29/19 08:00 General: Alert, Oriented x3, Cooperative HEENT: Atraumatic, Normocephalic, PERRLA Neck: Supple, 2+ carotid pulse no bruit Respiratory: Clear to auscultation bilaterally, Normal air movement Cardiovascular: No edema, Normal pulses, Normal S1 S2 Gastrointestinal: Normal bowel sounds, Soft and benign, Non-distended Musculoskeletal: No clubbing, No swelling Neurological: Normal gait, Normal speech Laboratory Data at Discharge: WBC 6.9 K/uL (4.3-10.9) D 06/29/19 07:02 Hgb 10.9 g/dL (12.0-15.0) L D 06/29/19 07:02 Hct 31.9 % (36.0-45.0) L D 06/29/19 07:02 Plt Count 284 K/uL (152-406) D 06/29/19 07:02 PT 11.5 SECONDS (9.5-12.5) 06/27/19 23:10 INR 0.97 06/27/19 23:10 Sodium 142 mmol/L (136-145) 06/29/19 06:28 Potassium 3.3 mmol/L (3.5-5.1) L 06/29/19 06:28 BUN 31 mg/dL (7-18) H 06/29/19 06:28 Creatinine 2.09 mg/dL (0.55-1.3) H D 06/29/19 06:28 Glucose 90 mg/dL (74-106) 06/29/19 06:28 Phosphorus 2.0 mg/dL (2.5-4.9) L 06/29/19 06:28 Magnesium 2.2 mg/dL (1.8-2.4) 06/29/19 06:28 Total Bilirubin 0.6 mg/dL (0.2-1.0) 06/29/19 06:28 AST 15 U/L (15-37) 06/29/19 06:28 ALT 10 U/L (12-78) L 06/29/19 06:28 Alkaline Phosphatase 47 U/L (45-117) 06/29/19 06:28 Home Medications: Aspirin [Aspirin EC 81 MG] 81 mg PO DAILY 01/27/17 Rosuvastatin Calcium 20 mg PO DAILY 01/27/17 Alendronate Sodium 1 tab PO SEECOM 06/28/19 Cetirizine HCl 1 tab PO DAILY 06/28/19 Cholecalciferol (Vitamin D3) [Vitamin D3] 1 tab PO DAILY 06/28/19 Donepezil HCl 1 tab PO DAILY 06/28/19 LORazepam [Ativan*] 1 tab PO BEDTIME PRN 06/28/19 Lactobacillus Acidophilus/Fos [Acidophilus Probiotic Tablet] 1 tab PO DAILY Memantine HCl 1 tab PO BID 06/28/19 Ziprasidone HCl [Geodon] 1 tab PO DAILY PRN 06/28/19 Levofloxacin [Levaquin] 250 mg PO DAILY #5 tablet 06/29/19 New Medications: Levofloxacin [Levaquin] 250 mg PO DAILY #5 tablet Patient Discharge Instructions: increase fluid intake. -stay off BP meds for now. - follow with your pcp in one week Diet: Regular Activity: Ad glendy Time spent managing pt's care (in minutes): 35
[2019-06-29 12:13] VITALS: BP 94/53; TEMP 98.3
[2019-06-29 12:57] LABS: Anisocytosis 1+; Blood Morphology Comment NOTED (NOT SEEN); Platelet Estimate ADEQ; Urine White Blood Cell Casts OK
[2019-06-30] MEDS ORDERED: Levofloxacin 250mg IV 250 MG/50 ML BAG IV SCH (05:00)
== END 2019-06-29 14:38 | disposition home or self-care (01) | DRG 682 ==
LOC: ER 22:43 → ERHOLD 06-28 01:23 → 2ND 06-28 03:08
PROVIDERS: ADMIT Family Medicine; ATTEND Internal Medicine
DX: N17.9 Acute kidney failure, unspecified (principal); G92 Toxic encephalopathy; E87.1 Hypo-osmolality and hyponatremia; N39.0 Urinary tract infection, site not specified; E11.9 Type 2 diabetes mellitus without complications; E87.6 Hypokalemia; G30.9 Alzheimer's disease, unspecified; F02.80 Dementia in other diseases classified elsewhere, unspecified severity, without behavioral disturbance, psychotic disturbance, mood disturbance, and anxiety; R62.7 Adult failure to thrive; I95.9 Hypotension, unspecified; Z68.21 Body mass index [BMI] 21.0-21.9, adult; I25.2 Old myocardial infarction
CPT/HCPCS: 36415; 51702; 70450; 71045; 80048; 80053; 80076; 81003; 81015; 82947; 83605; 83735; 83880; 84100; 84484; 85025; 85610; 87040; 87086; 87088; 93005; 99285; J7030; P9047

== ENCOUNTER 2021-02-01 22:08 | Emergency (ER) | payer OTHER ==
--- OUTSIDE RECORDS SUMMARY | 2021-02-01 22:11 | XMS REPORT | Continuity of Care Document ---
:1945 Author Organization [facility] t Address [address] [place] [address] Care Team Providers Name Role Phone Kam De La Rosa DO Primary Care Physician SYSTEM, NOT IN Attending Clinician Unavailable MICHELLE ISMON Attending Clinician Unavailable MICHELLE SIMON Admitting Clinician Unavailable Problems Condition Condition Condition Status Onset Resolution Last Treating Co mments Source Name Details Category Date Date Treatment Clinician Date Carotid Carotid Disease Active [facility] stenosis[facility] stenosis, 02-24 s - left left 00:00: Medical 00 Yeso Allergies, Adverse Reactions, Alerts Allergy Allergy Status Severity Reaction(s) Onset Inactive Treating Comm ents Source Name Type Date Date Clinician Penicill Drug Active Rash [facility] ins Allergy 02-23 - 00:00: Medical 00 Center penicill Adverse Active Info Not [facility] in Reaction Available [facility] Family History Family Member Diagnosis Comments Start Date Stop Date Source Natural father Diabetes [facility] Natural father Heart disease [facility] Social History Social Habit Start Date Stop Date Quantity Comments Source Sex Assigned At [facility] History of tobacco Current smoker [facility] Cigarettes smoked 2017-02-24 2017-02-24 [facility] - current (pack per 00:00:00 00:00:00 Medical Center day) - Reported Cigarette 2017-02-24 2017-02-[address] [facility] - pack-years 00:00:00 00:00:00 [facility] Center Tobacco use and 2017-02-24 2017-02-[address] [facility] Ale kes - exposure 00:00:00 00:00:00 [facility] Alcohol intake 2017-02-24 2017-02-24 [facility]:00 of alcohol [facility] Center (finding) Smoking Status Start Date Stop Date Source Former smoker 2017-02-24 00:00:00 2017-02-24 00:00:[address] [facility] Center Medications Ordered Filled Start Stop Current Ordering Indication Dosage Frequency Signature Comments Components Source Medication Medication Date Date Medication? Clinician (SIG) Name Name Probiotic Probiotic Yes Alfred [address] [facility] 6-08 [facility] - 00:00: [facility] 00 l Outpati ent Clinics aspirin 81 2017-07 Yes 81mg QD Take [address] MG EC 1-05 by mouth [facility] - tablet 11:26: daily. Medical 57 Center memantine-d 2017-07 Yes Take by [facility] onepezil 1-05 mouth. [facility] - (NAMZARIC) 11:26: Medical 28-10 mg 57 Center CSpX alendronate 2017-07 Yes 35mg Take [address] [facility] (FOSAMAX) 1-05 by mouth [facility] - 35 MG 11:26: every 7 Medical tablet 57 days Take Center in the morning with a full glass of water, on an empty stomach, and do not take anything else by mouth or lie down for the next 30 min. . cholecalcif 2017-07 Yes 1000U QD Take 1,[address] [facility] chris 1-05 Units by [facility] - (VITAMIN 11:26: mouth Medical D3) 1,000 57 daily. Center unit tablet metoprolol 2017-07 Yes 50mg Q.5D Take [address] (LOPRESSOR) 1-05 by mouth 2 Ale kes - 50 MG 10:33: (two) Medical tablet 35 times Center daily. memantine-d 2017-07 Yes QD Take by [facility] onepezil 1-05 mouth [facility] - 7-10 mg 10:33: daily. Medical CSpX 35 Center rosuvastati 2017-07 Yes 20mg QD Take [address] [facility] n (CRESTOR) 1-05 by mouth Luke s - 20 MG 10:33: daily. Medical tablet 35 Center cetirizine 2017-07 Yes 10mg QD Take [address] (ZYRTEC) 10 1-05 by mouth Luke s - MG tablet 10:33: daily. Medica l 35 Center donepezil 2017-07 Yes 5mg QD Take [address] [facility] (ARICEPT) 5 1-05 by mouth Luke s - MG tablet 10:32: nightly. Medi nicci 50 Center glimepiride 2017-07 Yes 2mg Take [address] (AMARYL) 2 1-05 by mouth [facility] - MG tablet 10:32: every Medical 50 morning Center before breakfast. hydroCHLORO 2017-07 Yes 25mg QD Take [address] thiazide 1-05 by mouth [facility] - (HYDRODIURI 10:32: daily. Medi nicci L) 25 MG 50 Center tablet Metoprolol Metoprolol Yes Alfred [address] [facility] Tartrate Tartrate De La Rosa with food [facility] Procedures This patient has no known procedures. Plan of Care Planned Activity Planned Date Details Comments Source Future Scheduled 2020-03-05 INFLUENZA VACCINE (#1) [facility] - Test 00:00:00 [code = INFLUENZA Medical Ce nter VACCINE (#1)] Future Scheduled 2017-07-[address] [facility] - Test 00:00:00 WELLNESS (YEAR 2 or Medical Center FIRST YEAR if no IPPE) [code = MEDICARE ANNUAL WELLNESS (YEAR 2 or FIRST YEAR if no IPPE)] Future Scheduled 2008-09-14 PNEUMOCOCCAL 65+ YRS [facility] - Test 00:00:00 (1 of 1 - Medical Center [id number]) [code = PNEUMOCOCCAL 65+ YRS (1 of 1 - [id number] PCV13)] Encounters Start End Encounter Admission Attending Care Care Encounter Source Date/Time Date/Time Type Type Clinicians Facility Department ID 2020-08-13 2020-08-13 Outpatient [facility] [id number] [facility]00 [facility] Clinics 2020-08-13 2020-08-13 Outpatient [facility] [id number] [facility] 2019-12-07 2019-12-07 [facility] [id number] [address] 14:02:00 14:02:00 [facility] [employer] s - Drive [facility] Medicine l Medicine Outpati ent Clinics 2019-12-04 2019-12-04 [facility] [id number] 08:28:00 08:28:00 t [employer] s - Drive [facility] Medicine l Medicine Outpati ent Clinics 2019-11-29 2019-11-29 [facility] [id number] 10:06:00 10:06:00 t [employer] s - [employer] [facility] Medicine l Medicine Outpati ent Clinics 2019-10-19 2019-10-19 [facility] [id number] 15:00:00 15:00:00 [facility] [employer] [facility] l Medicine Outpati ent Clinics 2019-10-18 2019-10-18 [facility] [id number] 13:48:00 13:48:00 [facility] [employer] [facility] Medicine l Medicine Outpati ent Clinics 2019-09-11 2019-09-11 [facility] [id number] 08:06:00 08:06:00 t [employer] [facility] l Medicine Outpati ent Clinics 2019-07-14 2019-07-14 [facility] [id number] 10:16:00 10:16:00 t [employer] [facility] Medicine Outpati ent Clinics 2019-07-11 2019-07-11 [facility] [id number] 08:44:00 08:44:00 t [employer] [facility] Medicine Medicine Outpati ent Clinics 2019-07-10 2019-07-10 [facility] [id number] 09:30:00 09:30:00 t [employer] [facility] Medicine Outpati ent Clinics 2019-06-14 2019-06-14 [facility] [id number] 10:30:00 10:30:[address] Luke s - Drive [facility] Medicine l Medicine Outpati ent Clinics 2019-06-05 2019-06-05 [facility] [id number] 16:21:00 16:21:[address] Luke s - Drive [facility] Medicine Outpati ent Clinics 2019-03-27 2019-03-27 [facility] [id number] 10:30:00 10:30:[address] Luke s - Drive [facility] Medicine Outpati ent Clinics 2018-09-19 2018-09-19 [facility] [id number] 10:15:00 10:15:00 t [employer] Luke s - Drive [facility] Medicine Outpati ent Clinics 2018-08-29 2018-08-29 [facility] [id number] 10:00:00 10:00:00 t [employer] s - Drive [facility] Medicine Outpati ent Clinics 2018-03-29 2018-03-29 [facility] [id number] 09:48:00 09:48:00 t [employer] Luke s - Drive [facility] Medicine Medicine Outpati ent Clinics 2018-03-01 2018-03-01 [facility] [id number] 12:15:00 12:15:00 t [employer] s - Drive [facility] l Medicine Outpati ent Clinics 2017-12-15 2017-12-15 [facility] [id number] 08:39:00 08:39:00 t [employer] Luke s - Drive [facility] Medicine Medicine Outpati ent Clinics 2017-12-09 2017-12-09 [facility] [id number] 08:51:00 08:51:00 t [employer] s - Drive [facility] Medicine Outpati ent Clinics 2017-12-06 2017-12-06 [facility] [id number] 15:30:00 15:30:00 t [employer] Luke s - Drive [facility] Medicine Outpati ent Clinics Results Test Description Test Time Test Comments Results Result Sourc e Comments MM, STEREOTACTIC Reason for Addendum BeginsMRN#: BIOPSY, BREAST, 9 Exam:->microcalcif [id number]: RIGHT 13:36:00 ications 05/13/2018 Francis Rebollar M.D. Pathology results are now available and demonstrate hyalinized fibroadenoma.This is concordant with the imaging findings. Addendum [facility]#: [id number] - MM, STEREOTACTIC BIOPSY, BREAST, RIGHTSTEREOTACTIC GUIDED [...] correct location, multiple specimens were obtained using SatNav TechnologiesIVA device. A clip was inserted into the [...] procedure complications. Francis Rebollar M.D. pth/:05/09/2018 14:05:00 Manager [employer]iconductor: Teena Page RT(R)(M), [facility] [id number] UE EXAM Surgical Pathology 6 Report 11:48:00 Case: [id number] Authorizing Provider: Francis Rebollar MD Collected: 05/09/2018 1535 Ordering Location: [facility] Received: 05/09/2018 1533 Pathologist: Rock Guerrero MD Specimen: Breast, Right, RIGHT CENTER LATERAL BREAST BREAST, RIGHT, CENTER LATERAL, STEREOTACTIC NEEDLE CORE BIOPSY: - HYALINIZED FIBROADENOMA ASSOCIATED WITH CALCIFICATIONS - COLUMNAR CELL CHANGES - BENIGN BREAST TISSUE ASSOCIATED WITH CALCIFICATION Signing Pathologist Direct Phone Line: [phone] ally signed by Rock Guerrero MD on 05/10/2018 at 11:48 [id number] X 1Questionable sclerosing lesion Right central lateral breast calcifications The specimen is received in a formalin-filled container labeled with the patient's information and labeled "right central lateral breast calcifications" and consists of multiple yellow-white breast cores ranging in length from 0.5 to 5 cm.Ink code: Black.The specimen is entirely submitted in A1 through A3. CG/ew Performed. [facility], Department of Pathology, [address] [place] [address], [place] [address], MM, MAMMO, Reason for MRN#: SPECIMEN, 5 exam:->Right [id number] - RADIOGRAPH, RIGHT 14:05:00 breast MM, MAMMO, SPECIMEN, calcifications RADIOGRAPH, RIGHTSPECIMEN RIGHT BREAST: 05/09/2018Multiple stereotactic guided biopsy specimens were imaged for the area of calcifications located in the right breast central, lateral to the nipple middle depth. IMPRESSION: SPECIMENThe imaged specimens includes the calcifications. Francis Rebollar M.D. pth/:05/09/2018 14:05:51 Manager Semiconductor: Teena Page RT(R)(M), [facility] [address]US , DIGITAL, Right breast MRN#: UNILATERAL, 5 Calcifications [id number] - CONFER JAYME, 14:03:00 MM, DIGITAL, MAMMO, RIGHT UNILATERAL, CONFER INCLUDING [...] pathology results. Francis Rebollar M.D. pth/:05/09/2018 14:03:34 Manager Semiconductor: Teena Page RT(R)(M), [facility] Mammogram BI-RADS: Post-procedure mammogram for marker placement [id number] UE EXAM Surgical Pathology 1 Report 10:40:00 Case: [id number] Authorizing Provider: Wilberto Simon MD Collected: 02/24/2017 0832 Ordering Location: [facility] Received: 02/24/2017 0928 [employer] Pathologist: Humberto Simons MD Specimen: Plaque, LEFT CAROTID ARTERY PLAQUE ARTERY, LEFT CAROTID, ATHERECTOMY:CALCIFIC ATHEROSCLEROTIC PLAQUE Signing Pathologist Direct Phone Line: [phone] ally signed by Humberto Simons MD on 03/05/2017 at 10:40 [id number]; [id number] stenosisLeft carotid artery plaque Specimen is received in a formalin-filled container labeled with the patient's information and labeled "left carotid plaque" and consists of a tubular shaped calcified segment of tissue measuring 2 cm in length and 0.5 cm in diameter. Astrobiologist sections are submitted in A1 for decalcification. CG/ewPerformed POCT-GLUCOSE METER 2017-02-25 11:16:00 Test Item Value Reference Range Interpretation Comme nts POC-GLUCOSE METER ([place]) (test 114 mg/dL 70-110 H TESTED AT [facility] [address] [facility] code = 1538) [facility] 7703 0 POCT-GLUCOSE [id number] 06:48:00 Test Item Value Reference Range Interpretation Comments POC-GLUCOSE METER 154 mg/dL 70-110 H TESTED AT [facility] [address] ([place]) (test code = BERTTRACEY R [facility] 1538) [id number] POCT-GLUCOSE [id number] 23:34:00 Test Item Value Reference Range Interpretation Comments POC-GLUCOSE METER 166 mg/dL 70-110 H TESTED AT [facility] [address] (BEAKER) (test code = ANGIE Cagle [facility] 1538) [id number] POCT-GLUCOSE [id number] 23:32:00 Test Item Value Reference Range Interpretation Comments POC-GLUCOSE METER 251 mg/dL 70-110 H TESTED AT [facility] [address] (BEAKER) (test code = ANGIE Cagle [facility] 1538) [id number] POCT-GLUCOSE [id number] 20:27:00 Test Item Value Reference Range Interpretation Comments POC-GLUCOSE METER 260 mg/dL 70-110 H TESTED AT [facility] [address] (BEAKER) (test code = ANGIE Cagle [facility] 1538) [id number] POCT-GLUCOSE [id number] 06:16:00 Test Item Value Reference Range Interpretation Comments POC-GLUCOSE METER 162 mg/dL 70-110 H TESTED AT [facility] [address] (BEAKER) (test code = ANGIE Cagle [facility] 1538) [id number] HEMOGLOBIN [id number] 12:09:00 Test Item Value Reference Range Interpretation Comments HEMOGLOBIN A1C (BEAKER) (test code = 7.8 % 4.3-6.1 H 368) BASIC METABOLIC [id number] 10:38:00 Test Item Value Reference Range Interpretation Comments SODIUM (BEAKER) 140 meq/L 136-145 (test code = 381) POTASSIUM (BEAKER) 4.0 meq/L 3.5-5.1 (test code = 379) CHLORIDE (BEAKER) 102 meq/L 98-107 (test code = 382) CO2 (BEAKER) (test 27 meq/L 22-29 code = 355) BLOOD UREA NITROGEN 15 mg/dL 7-21 (BEAKER) (test code = 354) CREATININE (BEAKER) 1.01 mg/dL 0.57-1.25 (test code = 358) GLUCOSE RANDOM 287 mg/dL 70-105 H (BEAKER) (test code = 652) CALCIUM (BEAKER) 9.4 mg/dL 8.4-10.2 (test code = 697) EGFR (BEAKER) (test 54 mL/min/1.73 ESTIMA ADALBERTO GFR IS code = 1092) sq m NOT ACCURATE CREATININE CLEARANCE IN PREDICTING GLOMERULAR FILTRATION RATE . ESTIMATED GFR I S NOT APPLICABLE FOR DIALYSIS PATIEN TS. PROTHROMBIN [id number] 10:25:00 Test Item Value Reference Range Interpretation Comments PROTIME (BEAKER) (test code = 12.9 seconds 11.7-14.7 759) INR (BEAKER) (test code = 370) 1.0 <=5.9 RECOMMENDED COUMADIN/WARFARIN INR THERAPY RANGESSTANDARD DOSE: 2.0 - 3.0 Includes: PROPHYLAXIS forvenous thrombosis, systemic embolization; TREATMENT for venous thrombosis and/or pulmonary embolus.HIGH RISK: Target INR is 2.5-3.5 for patients with mechanical heart valves.CBC W/PLT COUNT & AUTO DIFFERENTIAL 2017-02-23 10:09:00 Test Item Value Reference Range Interpretation Comments WHITE BLOOD CELL COUNT (BEAKER) 5.3 K/ L 3.5-10.5 (test code = 775) RED BLOOD CELL COUNT (BEAKER) 4.48 M/ L 3.93-5.22 (test code = 761) HEMOGLOBIN (BEAKER) (test code = 13.1 GM/DL 11.2-15.7 410) HEMATOCRIT (BEAKER) (test code = 40.1 % 34.1-44.9 411) MEAN CORPUSCULAR VOLUME (BEAKER) 89.5 fL 79.4-94.8 (test code = 753) MEAN CORPUSCULAR HEMOGLOBIN 29.2 pg 25.6-32.2 (BEAKER) (test code = 751) MEAN CORPUSCULAR HEMOGLOBIN CONC 32.7 GM/DL 32.2-35.5 (BEAKER) (test code = 752) RED CELL DISTRIBUTION WIDTH 13.7 % 11.7-14.4 (BEAKER) (test code = 412) PLATELET COUNT (BEAKER) (test 267 K/CU MM 150-450 code = 756) MEAN PLATELET VOLUME (BEAKER) 10.7 fL 9.4-12.3 (test code = 754) NUCLEATED RED BLOOD CELLS 0 /100 WBC 0-0 (BEAKER) (test code = 413) NEUTROPHILS RELATIVE PERCENT 58 % (BEAKER) (test code = 429) LYMPHOCYTES RELATIVE PERCENT 30 % (BEAKER) (test code = 430) MONOCYTES RELATIVE PERCENT 7 % (BEAKER) (test code = 431) EOSINOPHILS RELATIVE PERCENT 5 % (BEAKER) (test code = 432) BASOPHILS RELATIVE PERCENT 1 % (BEAKER) (test code = 437) NEUTROPHILS ABSOLUTE COUNT 3.05 K/ L 1.56-6.13 (BEAKER) (test code = 670) LYMPHOCYTES ABSOLUTE COUNT 1.58 K/ L 1.18-3.74 (BEAKER) (test code = 414) MONOCYTES ABSOLUTE COUNT (BEAKER) 0.35 K/ L 0.24-0.36 (test code = 415) EOSINOPHILS ABSOLUTE COUNT 0.26 K/ L 0.04-0.36 (BEAKER) (test code = 416) BASOPHILS ABSOLUTE COUNT (BEAKER) 0.03 K/ L 0.01-0.08 (test code = 417) IMMATURE GRANULOCYTES-RELATIVE 0 % 0-1 PERCENT (BEAKER) (test code = 2803)
[2021-02-01] MEDS ORDERED: NA CHLORIDE 0.9% 1,000 ML ONE (23:37)
[2021-02-01] MEDS ORDERED: FOLIC ACID 5 MG/ML VIAL ONE (23:38)
[2021-02-01 23:44] LABS: Absolute Lymphocytes (CBC) 1.7 K/uL (0.7-4.9); Basophils % 1.3 % (0-1.3); Hematocrit 39.4 % (36.0-45.0); Lymphocytes % 27.2 % (15.3-44.8); RBC Red Blood Cell Count 4.62 M/uL (3.86-4.86)
[2021-02-01 23:48] LABS: Protime INR 0.91
[2021-02-02 00:03] LABS: ALT/SGPT 16 U/L (12-78); AST/SGOT 14 U/L (15-37); Albumin 3.7 g/dL (3.4-5.0); Alkaline Phosphatase 55 U/L (45-117); BUN Blood Urea Nitrogen 17 mg/dL (7-18); Bicarbonate 29 mmol/L (21-32); Bilirubin Direct 0.2 mg/dL (0-0.2); Bilirubin Total 0.8 mg/dL (0.2-1.0); Glucose Level 105 mg/dL (74-106); Magnesium 2.5 mg/dL (1.8-2.4); NT PRO-BNP 265 pg/mL (<450); Potassium 3.8 mmol/L (3.5-5.1); Protein, Total 7.6 g/dL (6.4-8.2); Sodium Level 142 mmol/L (136-145); Troponin (Emerg Dept Use Only) < 0.02 ng/mL (0.0-0.045)
--- NOTE | 2021-02-02 00:21 | ER ---
Nurse's Notes [facility] Name: Nichole Brown Age: 75 yrs Sex: Female : 1945 Arrival Date: 02/01/2021 Time: 22:12 Bed 28 Private MD: Diagnosis: Altered mental status, unspecified;Dementia in other diseases classified elsewhere without behavioral disturbance;Retention of urine, unspecified-900 CC Presentation: 02/02 00:47 Chief complaint: EMS states: Pt coming from [facility] staff noted pt has ea been for confused for the past three days. Coronavirus screen: At this time, the client does not indicate any symptoms associated with coronavirus-19. Ebola Screen: No symptoms or risks identified at this time. Initial Sepsis Screen: Does the patient meet any 2 criteria? No. Patient's initial sepsis screen is negative. Does the patient have a suspected source of infection? No. Patient's initial sepsis screen is negative. Risk Assessment: Do you want to hurt yourself or someone else? Patient reports no desire to harm self or others. Onset of symptoms was February 02, 2021. 00:47 Acuity: GENESIS 3 ea 00:47 Method Of Arrival: EMS: [facility] ea Historical: - Allergies: 00:46 PENICILLINS; ea - Home Meds: 00:46 aspirin 81 mg Oral TbEC 1 tab once daily [Active]; Boniva Oral [Active]; cranberry ea 4200mg Oral [Active]; donepezil 10 mg Oral tab 1 tab once daily [Active]; glimepiride 2 mg Oral tab 1 tab once daily [Active]; hydrochlorothiazide 25 mg Oral tab 1 tab once daily [Active]; loratadine 10 mg Oral tab 1 tab once daily [Active]; Namzaric 10mg Oral CSpX 1 cap once daily [Active]; rosuvastatin 20 mg Oral tab 1 tab once daily [Active]; - PMHx: 00:46 skin cancer; left mastectomy; Hypertension; Diabetes - NIDDM; Alzheimers; ea - Immunization history:: Adult Immunizations up to date. - Family history:: not pertinent. - Social history:: Smoking status: unknown. Screenin:46 Abuse screen: Denies threats or abuse. Nutritional screening: No deficits noted. ea Tuberculosis screening: No symptoms or risk factors identified. Fall Risk IV access (20 points). Assessment: 00:48 General: Appears in no apparent distress. Behavior is appropriate for age. Pain: Denies ea pain. Neuro: Level of Consciousness is awake, alert, obeys commands, Oriented to person. Cardiovascular: Patient's skin is warm and dry. Respiratory: Airway is patent Respiratory effort is even, unlabored, Respiratory pattern is regular, symmetrical. Derm: Skin is pink, warm \T\ dry. 02:08 Reassessment: Patient and/or family updated on plan of care and expected duration. Pain ea level reassessed. Patient is alert, oriented x 3, equal unlabored respirations, skin warm/dry/pink. Pt alert and oriented to self. Discharge instruction given to patient's daughter verbalized the understanding of instruction. Pt left ED ambulatory tolerating well. Vital Signs: 02/01 22:14 BP 166 / 69; Pulse 54; Resp 18; Temp 98.5; zb ED Course: 22:12 Patient arrived in ED. cf2 22:13 Emma Sanchez, LOLY is Primary Nurse. zb 22:44 Kendall Reyes MD is Attending Physician. ty 23:18 XRAY Chest (1 view) In Process Unspecified. EDMS 23:42 CT Head Brain wo Cont In Process Unspecified. EDMS 23:50 Inserted saline lock: 20 gauge in right antecubital area, using aseptic technique. ea 02/02 00:20 Christianne Schwab MD is Hospitalizing Provider. ty 00:46 Patient has correct armband on for positive identification. Placed in gown. Bed in low ea position. Call light in reach. Side rails up X2. 00:46 Marion cath inserted, using sterile technique, 18 Fr., by vt, balloon inflated, urine ea specimen collected. 00:47 Arm band placed on right wrist. Patient placed in an exam room, on a stretcher, on ea pulse oximetry. 00:48 Triage completed. ea 00:54 No provider procedures requiring assistance completed. Patient admitted, IV remains in ea place. 01:15 Natanael Shelley MD is Referral Physician. ty Administered Medications: 00:24 Drug: NS 0.9% 1000 ml Route: IV; Rate: 125 ml/hr; Site: right antecubital; ea 00:24 Drug: foLIC Acid 1 mg Route: IVPB; Site: right antecubital; ea 00:43 Drug: Rocephin (cefTRIAXone) 1 grams Route: IV; Rate: per protocol; Site: right ea antecubital; Outcome: 00:21 Decision to Hospitalize by Provider. ty 00:54 Condition: stable ea 00:54 Instructed on the need for admit. 01:15 Discharge ordered by . ty 02:10 Patient left the ED. ea Signatures: Dispatcher [employer] Kendall Mari MD MD cha Antunez, Elena RN RN Ania William 2 Emma Sanchez RN RN zb
--- NOTE | 2021-02-02 00:21 | EDPHYS ---
Physician Documentation [facility] Name: Nichole Brown Age: 75 yrs Sex: Female : 1945 Arrival Date: 02/01/2021 Time: 22:12 Bed 28 Private MD: ED Physician Kendall Reyes HPI: 02/02 00:14 This 75 yrs old Female presents to ER via Unassigned with complaints of ty Altered Mental Status. 00:14 The patient presents with confusion, decreased mental status, trouble concentrating. ty Onset: The symptoms/episode began/occurred 3 day(s) ago. Possible causes: sepsis, the patient lives in a [facility]. Associated signs and symptoms: Pertinent positives: confusion. Current symptoms: In the emergency department the patient's symptoms are unchanged from the initial presentation, despite home interventions. Patient's baseline: Neuro: alert and fully oriented. The patient has experienced similar episodes in the past, several times. Historical: - Allergies: 00:46 PENICILLINS; ea - Home Meds: 00:46 aspirin 81 mg Oral TbEC 1 tab once daily [Active]; Boniva Oral [Active]; cranberry ea 4200mg Oral [Active]; donepezil 10 mg Oral tab 1 tab once daily [Active]; glimepiride 2 mg Oral tab 1 tab once daily [Active]; hydrochlorothiazide 25 mg Oral tab 1 tab once daily [Active]; loratadine 10 mg Oral tab 1 tab once daily [Active]; Namzaric 10mg Oral CSpX 1 cap once daily [Active]; rosuvastatin 20 mg Oral tab 1 tab once daily [Active]; - PMHx: 00:46 skin cancer; left mastectomy; Hypertension; Diabetes - NIDDM; Alzheimers; ea - Immunization history:: Adult Immunizations up to date. - Family history:: not pertinent. - Social history:: Smoking status: unknown. ROS: 00:15 Constitutional: Negative for fever, chills, and weight loss, Eyes: Negative for injury, ty pain, redness, and discharge, ENT: Negative for injury, pain, and discharge, Neck: Negative for injury, pain, and swelling, Cardiovascular: Negative for chest pain, palpitations, and edema, Respiratory: Negative for shortness of breath, cough, wheezing, and pleuritic chest pain, Abdomen/GI: Negative for abdominal pain, nausea, vomiting, diarrhea, and constipation, Back: Negative for injury and pain, : Negative for injury, bleeding, discharge, and swelling, MS/Extremity: Negative for injury and deformity, Skin: Negative for injury, rash, and discoloration, Psych: Negative for depression, anxiety, suicide ideation, homicidal ideation, and hallucinations, Allergy/Immunology: Negative for hives, rash, and allergies, Endocrine: Negative for neck swelling, polydipsia, polyuria, polyphagia, and marked weight changes, Hematologic/Lymphatic: Negative for swollen nodes, abnormal bleeding, and unusual bruising. 00:15 Neuro: Positive for altered mental status, weakness. Exam: 00:15 Constitutional: This is a well developed, well nourished patient who is awake, alert, ty and in no acute distress. Head/Face: Normocephalic, atraumatic. Eyes: Pupils equal round and reactive to light, extra-ocular motions intact. Lids and lashes normal. Conjunctiva and sclera are non-icteric and not injected. Cornea within normal limits. Periorbital areas with no swelling, redness, or edema. ENT: Nares patent. No nasal discharge, no septal abnormalities noted. Tympanic membranes are normal and external auditory canals are clear. Oropharynx with no redness, swelling, or masses, exudates, or evidence of obstruction, uvula midline. Mucous membranes moist. Neck: Trachea midline, no thyromegaly or masses palpated, and no cervical lymphadenopathy. Supple, full range of motion without nuchal rigidity, or vertebral point tenderness. No Meningismus. Chest/axilla: Normal chest wall appearance and motion. Nontender with no deformity. No lesions are appreciated. Cardiovascular: Regular rate and rhythm with a normal S1 and S2. No gallops, murmurs, or rubs. Normal PMI, no JVD. No pulse deficits. Respiratory: Lungs have equal breath sounds bilaterally, clear to auscultation and percussion. No rales, rhonchi or wheezes noted. No increased work of breathing, no retractions or nasal flaring. Abdomen/GI: Soft, non-tender, with normal bowel sounds. No distension or tympany. No guarding or rebound. No evidence of tenderness throughout. Back: No spinal tenderness. No costovertebral tenderness. Full range of motion. Skin: Warm, dry with normal turgor. Normal color with no rashes, no lesions, and no evidence of cellulitis. MS/ Extremity: Pulses equal, no cyanosis. Neurovascular intact. Full, normal range of motion. Neuro: Awake and alert, GCS 15, oriented to person, place, time, and situation. Cranial nerves II-XII grossly intact. Motor strength 5/5 in all extremities. Sensory grossly intact. Cerebellar exam normal. Normal gait. Psych: Awake, alert, with orientation to person, place and time. Behavior, mood, and affect are within normal limits. 00:15 ECG was reviewed by the Attending Physician. Vital Signs: 02/01 22:14 BP 166 / 69; Pulse 54; Resp 18; Temp 98.5; zb MDM: 22:44 Patient medically screened. [facility] 02/02 00:17 Differential Diagnosis altered mental status, sepsis. Differential Diagnosis: CVA, ty electrolyte abnormality, hypoglycemia, intracranial bleed, pneumonia, TIA, UTI, volume depletion. Data reviewed: vital signs, nurses notes, EMS record, lab test result(s), EKG, radiologic studies, CT scan, plain films. Data interpreted: funeral planner: rate is 54 beats/min, rhythm is regular, Pulse oximetry: on room air is 96 %. Test interpretation: by ED physician or midlevel provider: ECG, plain radiologic studies. Counseling: I had a detailed discussion with the patient and/or guardian regarding: lab results, radiology results. 02/01 22:43 Order name: Basic Metabolic Panel 02/01 22:43 Order name: CBC with Diff; Complete Time: 00:09 02/01 22:43 Order name: LFT's; Complete Time: 00: 02/01 22:43 Order name: Magnesium; Complete Time: 00:09 02/01 22:43 Order name: NT PRO-BNP; Complete Time: 00:09 02/01 22:43 Order name: PT-INR; Complete Time: 00: 02/01 22:43 Order name: Troponin (emerg Dept Use Only); Complete Time: 00:09 02/01 22:44 Order name: Basic Metabolic Panel; Complete Time: 00:09 [facility] 02/01 22:45 Order name: Urine Culture [facility] 02/01 22:46 Order name: Urine Culture [facility] 02/02 00:31 Order name: COVID-19 : Document "Date of Symptom Onset" if Symptomatic. bb 02/02 00:32 Order name: Urine Dipstick-Ancillary; Complete Time: 00:44 [facility] 02/02 01:36 Order name: SARS-COV-2 RT PCR [facility] 02/01 22:43 Order name: XRAY Chest (1 view) 02/01 22:43 Order name: EKG; Complete Time: 22:44 02/01 22:43 Order name: Cardiac monitoring; Complete Time: 00:24 02/01 22:43 Order name: EKG - Nurse/Tech; Complete Time: 00:54 02/01 22:43 Order name: IV Saline Lock; Complete Time: 00:55 02/01 22:43 Order name: Labs collected and sent; Complete Time: 00:55 02/01 22:43 Order name: O2 Per Protocol; Complete Time: 00:55 02/01 22:43 Order name: O2 Sat Monitoring; Complete Time: 00:55 02/01 22:45 Order name: CT Head Brain wo Cont [facility] 02/01 22:45 Order name: Urine Dipstick-Ancillary (obtain specimen); Complete Time: 00:49 [facility] 02/02 00:26 Order name: Marion; Complete Time: 00:49 [facility] EC:15 Rate is 57 beats/min. Rhythm is regular. QRS [place] is Normal. PA interval is normal. QRS ty interval is normal. QT interval is normal. No Q waves. T waves are Normal. No ST changes noted. Clinical impression: LVH, Sinus bradycardia, and No evidence of ischemia. Interpreted by me. Reviewed by me. Administered Medications: 00:24 Drug: NS 0.9% 1000 ml Route: IV; Rate: 125 ml/hr; Site: right antecubital; ea 00:24 Drug: foLIC Acid 1 mg Route: IVPB; Site: right antecubital; ea 00:43 Drug: Rocephin (cefTRIAXone) 1 grams Route: IV; Rate: per protocol; Site: right ea antecubital; Disposition Summary: 02/02/21 01:15 Discharge Ordered Location: Home(02/02/21 01:15) ty Problem: new(02/02/21 01:15) ty Symptoms: have improved(02/02/21 01:15) ty Condition: Stable(02/02/21 01:15) ty Diagnosis - Altered mental status, unspecified(02/02/21 01:15) ty - Dementia in other diseases classified elsewhere without behavioral ty disturbance(02/02/21 01:15) - Retention of urine, unspecified - 900 CC(02/02/21 01:15) ty Followup: ty - With: Private Physician - When: 2 - 3 days - Reason: Recheck today's complaints, Continuance of care, Re-evaluation by your physician Followup: ty - With: Nataneal Shelley MD - When: 2 - 3 days - Reason: Recheck today's complaints, Re-evaluation by your physician Discharge Instructions: - Discharge Summary Sheet ty - Confusion ty - Dementia ty - Acute Urinary Retention, Female ty - Acute Urinary Retention, Female, [id number]-Youo ty - Dementia, [id number] ty Forms: - Medication Reconciliation Form ty - Thank You Letter ty - Antibiotic Education ty - Prescription Opioid Use ty Prescriptions: - Cephalexin 500 mg Oral Capsule - take 1 capsule by ORAL route every 6 hours for 5 days; 20 capsule; Refills: 0, ty Product Selection Permitted Signatures: Dispatcher [employer] EDMS Kendall Reyes MD MD cha Attema, Lee, FLAKE MILLER HELPER-C FLAKE MILLER HELPER-Cla1 Minerva Del Cid RN RN ea Corrections: (The following items were deleted from the chart) 00:42 00:32 CORONAVIRUS ordered. EDWV EDMS 00:21 Observation ty ty 00:21 SchwabDonaldo grossammad ty ty 00:21 Telemetry/MedSurg (Inpatient) ty ty 00:21 Stable ty ty 00:21 new ty ty 00:21 have improved ty ty 00:21 Standard ty ty 00:21 ty ty 00:21 Altered mental status, unspecified ty ty 00:21 Dementia in other diseases classified elsewhere without behavioral disturbance coral 00:21 Dysuria ty ty 00:21 Alzheimer's disease, unspecified ty ty 00:26 Retention of urine, unspecified - PVR 900 CC ty ty
[2021-02-02 00:32] LABS: Urine Blood Trace-lysed (Negative); Urine Glucose Negative (Negative); Urine Protein Negative (Negative); Urine Specific Gravity <=1.005 (1.005-1.030); Urine pH 5.5 (5.0-7.0)
[2021-02-02] MEDS ORDERED: CEFTRIAXONE/SWI 1gm 1 GM/10 ML SYR ONE (00:58)
--- NOTE | 2021-02-02 09:43 | RAD REPORT ---
EXAM DESCRIPTION: RAD - Chest Single View - 02/01/2021 11:18 pm CLINICAL HISTORY: CHEST PAIN Chest pain. COMPARISON: Chest Single View dated 06/27/2019; Chest Single View dated 01/29/2017; Chest Single View dated 01/27/2017; Chest Single View dated 01/26/2017 FINDINGS: Portable technique limits examination quality. The lungs are emphysematous but grossly clear. The heart is normal in size. No displaced fractures. IMPRESSION: COPD.
--- NOTE | 2021-02-03 11:29 | RAD REPORT ---
EXAM DESCRIPTION: CT Head Brain Wo Cont CLINICAL HISTORY: 73 years Female recurrent fall TECHNIQUE: Contiguous axial CT images obtained through the brain without IV contrast. This CT exam was performed according to our departmental dose-optimization program, which includes on e or more of the following dose reduction techniques: automated exposure control, adjustment of the m A and/or kV according to patient size, and/or use of iterative reconstruction technique. COMPARISON: No prior exams provided for comparison. FINDINGS: There is no acute skull fracture, intracranial hemorrhage, extraaxial collection, or acute transcortical infarction. Mild diffuse volume loss without mass effect or midline shift. The visualized paranasal sinuses, tympanomastoid cavities, and orbits are normal. IMPRESSION: No acute intracranial abnormality. Electronically signed by: Janice Powell MD 06/28/2019 1:46 AM [employer] Due to temporary technical issues with the PACS/Fluency reporting system, reports are being signed by the in house radiologists without review as a courtesy to insure prompt reporting. The interpreting radiologist is fully responsible for the content of the report.
== END 2021-02-02 02:10 | disposition home or self-care (01) ==
LOC: ER 22:08
DX: R33.9 Retention of urine, unspecified (principal); G30.9 Alzheimer's disease, unspecified; F02.80 Dementia in other diseases classified elsewhere, unspecified severity, without behavioral disturbance, psychotic disturbance, mood disturbance, and anxiety; I10 Essential (primary) hypertension; E11.9 Type 2 diabetes mellitus without complications; Z20.822 Contact with and (suspected) exposure to COVID-19; Z90.12 Acquired absence of left breast and nipple; Z79.82 Long term (current) use of aspirin; Z88.0 Allergy status to penicillin
CPT/HCPCS: 93005; 87088; 85025; 87086; 80048; 36415; 83735; 85610; 80076; 81003; 84484; 83880; 70450; 71045; 51702; 96374; 99284; U0003; J0696; J7030